=== PATIENT | male | born 1950 | race Caucasian/White ===

== ENCOUNTER 2022-07-30 10:45 | Outpatient (CLI) | payer MEDICARE, MEDICAID | END 2022-07-30 10:46 | disposition home or self-care (01) | LOC: CSHCP 10:45 | PROVIDERS: ATTEND Internal Medicine Critical Care Medicine | DX: J45.51 Severe persistent asthma with (acute) exacerbation (principal) | CPT/HCPCS: 94060; 94726; 94729; 94760 ==

== ENCOUNTER 2024-08-25 19:58 | Emergency (ER) | payer MEDICARE ==
[~2024-08-25 19:58] MED LIST: Iopamidol 300 61% 100 ML VIAL FS ONE
[2024-08-25 20:43] LABS: #Basophils 0.06 10x3/uL (0.0-0.2); #Monocytes 2.18 10x3/uL (0.0-1.1); #Neutrophils 16.59 10x3/uL (1.5-8.4); %Basophils 0.3 % (0.0-2.0); %Eosinophils 2.3 % (0.0-6.0); %Lymphocytes 9.5 % (18.0-47.0); %Monocytes 10.1 % (0.0-10.0); %Neutrophils 77.2 % (40.0-75.0); Hematocrit 41.8 % (38.8-50.0); Hemoglobin 14.1 g/dL (13.5-17.5); Mean Corpuscular HGB CONC 33.7 g/dL (32.0-36.0); Mean Corpuscular Hemoglobin 29.3 pg (27.0-33.0); Mean Corpuscular Volume 86.9 fL (81.2-95.1); Mean Platelet Volume 9.1 fL (7.4-10.4); Platelet Count 295 10x3/uL (150-450); Red Blood Cell (RBC) Count 4.81 10x6/uL (4.32-5.72); White Blood Cell (WBC) Count 21.5 10x3/uL (3.5-10.5)
[2024-08-25] MEDS ORDERED: Ondansetron PF 4 MG/2 ML Vial ONE (20:48)
[2024-08-25] MEDS ORDERED: methylPREDNISolone Sod Succ/PF 125 MG/2 ML VIAL ONE (20:48)
[2024-08-25] MEDS ORDERED: Ipratropium/Albuterol 3 ML NEB ONE (20:54)
[2024-08-25 21:02] LABS: ALT (SGPT) 13 U/L (8-55); AST (SGOT) 16 U/L (5-34); Albumin 3.5 g/dL (3.4-4.8); Alkaline Phosphatase 82 U/L (40-110); Anion Gap 14 mmol/L (10-20); BUN (Urea Nitrogen) 27 mg/dL (8.4-25.7); Bilirubin, Total 0.7 mg/dL (0.2-1.2); Calc. Creatinine Clearance 0 mL/min (70-130); Calcium 9.5 mg/dL (7.8-10.44); Carbon Dioxide 26 mmol/L (23-31); Chloride 99 mmol/L (98-107); Estimated GFR 48; Globulin 3.4 g/dL (2.4-3.5); Glucose 206 mg/dL (83-110); Lipase 47 U/L (8-78); Magnesium 1.7 mg/dL (1.6-2.6); Potassium 4.7 mmol/L (3.5-5.1); Protein, Total 6.9 g/dL (5.8-8.1); Sodium 134 mmol/L (136-145)
[2024-08-25 21:08] LABS: Troponin I Less than 0.010 ng/mL (< 0.028)
[2024-08-25 21:28] LABS: Actual Bicarbonate (HCO3v) 26.1 mEq/L (22-28); Analyzer IN Cardio CS ER; Calcium, Ionized (venous) 1.17 mmol/L (1.16-1.32); Chloride (VBG) 97 mmol/L (98-106); Critical Notified By: CP.PH; Hematocrit-VBG 44 % (42.0-52.0); Hemoglobin (Hb) 15.1 g/dL (12.6-17.4); Potassium (VBG) 4.98 mmol/L (3.70-5.30); Puncture Site Other Site; RapidComm Collect By LAB.YY; Sodium 135 mmol/L (133-146); pH (venous) 7.399 (7.32-7.43)
[2024-08-25 22:58] LABS: Bilirubin Neg (Negative); Blood, Urine 25 (Negative); Clarity Cloudy (Clear); Glucose, Urine (Dipstick) Normal (Negative); Ketone, Urine Negative (Negative); Leukocyte 500 (Negative); Nitrite Positive (Negative); Protein, Urine (Dipstick) 100 mg/dl (Neg-Trace); Urobilinogen Normal mg/dL (Less than 2)
[2024-08-25 23:06] LABS: Bacteria/HPF 4+ HPF (None Seen); CAUTI Indications for Culture Fever or rigors; RBC/HPF 0-3 HPF (0-3); WBC/HPF Greater than 50 HPF (0-3)
[2024-08-25 23:07] LABS: Urine Culture Reflex Yes Yes
[2024-08-25] MEDS ORDERED: cefTRIAXone (ROCEPHIN) 1 GM VIAL ONE (23:48)
== END 2024-08-26 00:35 | disposition home or self-care (01) ==
LOC: CSHERS 19:58
DX: N39.0 Urinary tract infection, site not specified (principal); E11.9 Type 2 diabetes mellitus without complications; I10 Essential (primary) hypertension
CPT/HCPCS: 71260; 74177; 80053; 81001; 82805; 83605; 83690; 83735; 83880; 84484; 85025; 87077; 87086; 93005; 94640; 94760; J0696; J2405; J2919; 36415; 87186; 96361; 96365; 96375; J7620; Q9967

== ENCOUNTER 2024-12-07 10:07 | Outpatient (CLI) | payer OTHER, MEDICAID | END 2024-12-07 10:08 | disposition home or self-care (01) | LOC: CSHULT 10:07 | PROVIDERS: ATTEND Psychiatry & Neurology Psychiatry | DX: R11.2 Nausea with vomiting, unspecified (principal); K74.60 Unspecified cirrhosis of liver; D12.6 Benign neoplasm of colon, unspecified; B18.2 Chronic viral hepatitis C | CPT/HCPCS: 76705 ==

== ENCOUNTER 2025-10-13 17:40 | Inpatient (IN) | payer OTHER ==
[2025-10-13 18:15] LABS: #Basophils 0.04 10x3/uL (0.0-0.2); #Eosinophils 0.06 10x3/uL (0.0-0.5); #Monocytes 2.50 10x3/uL (0.0-1.1); #Neutrophils 13.38 10x3/uL (1.5-8.4); %Basophils 0.2 % (0.0-2.0); %Eosinophils 0.3 % (0.0-6.0); %Lymphocytes 17.0 % (18.0-47.0); %Monocytes 12.9 % (0.0-10.0); %Neutrophils 69.2 % (40.0-75.0); Hematocrit 40.3 % (38.8-50.0); Hemoglobin 14.2 g/dL (13.5-17.5); Mean Corpuscular Hemoglobin 30.3 pg (27.0-33.0); Mean Corpuscular Volume 85.9 fL (81.2-95.1); Platelet Count 225 10x3/uL (150-450); Red Blood Cell (RBC) Count 4.69 10x6/uL (4.32-5.72); White Blood Cell (WBC) Count 19.33 10x3/uL (3.5-10.5)
[2025-10-13 18:29] LABS: ALT (SGPT) 38 U/L (Less than 45); AST (SGOT) 100 U/L (11-34); Albumin 3.8 g/dL (3.1-4.5); Alkaline Phosphatase 71 U/L (40-110); Anion Gap 18 mmol/L (10-20); BUN (Urea Nitrogen) 57 mg/dL (8.4-25.7); Bilirubin, Total 1.2 mg/dL (0.3-1.2); Calc. Creatinine Clearance 0 mL/min (70-130); Calcium 8.9 mg/dL (7.8-10.44); Carbon Dioxide 21 mmol/L (23-31); Chloride 98 mmol/L (98-107); Globulin 3.2 g/dL (2.4-3.5); Glucose 238 mg/dL (83-110); Lipase 14 U/L (8-78); Potassium 4.4 mmol/L (3.5-5.1); Sodium 133 mmol/L (136-145)
[2025-10-13 18:50] LABS: Troponin I 0.027 ng/mL (< 0.028)
[2025-10-13 20:21] LABS: Glucose, Urine (Dipstick) >=1000 mg/dL (Negative); Leukocyte Negative (Negative); Protein, Urine (Dipstick) 100 mg/dl (Neg-Trace); Specific Gravity, Urine 1.025 (1.005-1.030)
[2025-10-13 20:28] LABS: CAUTI Indications for Culture Pelvic or flank pain; WBC/HPF 0-3 HPF (0-3)
[2025-10-13 20:29] LABS: Bacteria/HPF 2+ HPF (None Seen); Mucous/LPF 2+ LPF (<2+)
[2025-10-13 20:30] LABS: Urine Culture Reflex No No
[2025-10-13] MEDS ORDERED: cefTRIAXone (ROCEPHIN) 2 GM VIAL ONE (20:57)
[2025-10-13] MEDS ORDERED: Bisacodyl 10 MG SUPP PR PRN (22:53)
[2025-10-13] MEDS ORDERED: Ondansetron PF 4 MG/2 ML Vial IVP PRN (22:53)
[2025-10-13] MEDS ORDERED: Senokot S 8.6-50 MG TAB PO PRN (22:53)
[2025-10-13] MEDS ORDERED: Glucagon 1 MG/ML KIT IM PRN (22:59)
[2025-10-13] MEDS ORDERED: Dextrose 50% Abboject 50 ML SYRINGE SLOW IVP PRN (22:59)
[2025-10-13 23:32] VITALS: BMI 28.5
[2025-10-13] MEDS: Acetaminophen 325 MG TAB PO PRN (23:51)
[2025-10-14] MEDS: Ventolin HFA Inhaler 60 PUFF INHALER INH PRN (00:40)
[2025-10-14] MEDS: Gabapentin 300 MG CAP PO SCH ×2 (00:47→09:01)
[2025-10-14 03:42] LABS: #Basophils 0.03 10x3/uL (0.0-0.2); #Eosinophils 0.31 10x3/uL (0.0-0.5); #Monocytes 1.83 10x3/uL (0.0-1.1); #Neutrophils 10.27 10x3/uL (1.5-8.4); %Basophils 0.2 % (0.0-2.0); %Eosinophils 2.0 % (0.0-6.0); %Lymphocytes 18.5 % (18.0-47.0); %Monocytes 11.9 % (0.0-10.0); %Neutrophils 67.1 % (40.0-75.0); Hematocrit 38.2 % (38.8-50.0); Hemoglobin 13.3 g/dL (13.5-17.5); Mean Corpuscular Hemoglobin 30.2 pg (27.0-33.0); Mean Corpuscular Volume 86.8 fL (81.2-95.1); Platelet Count 185 10x3/uL (150-450); Red Blood Cell (RBC) Count 4.40 10x6/uL (4.32-5.72); White Blood Cell (WBC) Count 15.33 10x3/uL (3.5-10.5)
[2025-10-14 04:00] LABS: ALT (SGPT) 38 U/L (Less than 45); AST (SGOT) 109 U/L (11-34); Albumin 3.2 g/dL (3.1-4.5); Alkaline Phosphatase 61 U/L (40-110); Anion Gap 14 mmol/L (10-20); BUN (Urea Nitrogen) 46 mg/dL (8.4-25.7); Bilirubin, Total 0.7 mg/dL (0.3-1.2); Calc. Creatinine Clearance 57 mL/min (70-130); Calcium 8.3 mg/dL (7.8-10.44); Carbon Dioxide 21 mmol/L (23-31); Chloride 104 mmol/L (98-107); Globulin 2.9 g/dL (2.4-3.5); Glucose 225 mg/dL (83-110); Potassium 4.0 mmol/L (3.5-5.1); Sodium 135 mmol/L (136-145)
[2025-10-14] MEDS: Mometasone 100 MCG/Formoterol 5 MCG 60 PUFF AEROSOL INH SCH (07:24)
[2025-10-14] MEDS ORDERED: Gabapentin 300 MG CAP PO SCH (09:00)
[2025-10-14] MEDS: CO Q-10 CAPSULE 50 MG PO SCH (09:02)
[2025-10-14] MEDS: Aspirin 81 mg Enteric Coated Tablet PO SCH (09:02)
[2025-10-14] MEDS: Cholecalciferol 1,000 UNITS (25 MCG) TAB PO SCH (09:04)
[2025-10-14] MEDS: Heparin 5,000 UNITS/ML VIAL SC SCH (09:07)
[2025-10-14] MEDS: Senokot S 8.6-50 MG TAB PO SCH (09:07)
[2025-10-14] MEDS: predniSONE 10 MG TAB PO SCH (19:22)
[2025-10-14] MEDS: Pantoprazole 40 MG DR.TAB PO SCH (20:23)
[2025-10-14] MEDS: Finasteride 5 MG TAB PO SCH (20:23)
[2025-10-14] MEDS: Lantus 1000 UNITS/10 ML VIAL SC SCH (20:24)
[2025-10-15 03:48] LABS: #Basophils Less than 0.03 10x3/uL (0.0-0.2); #Eosinophils 0.22 10x3/uL (0.0-0.5); #Monocytes 0.90 10x3/uL (0.0-1.1); #Neutrophils 7.07 10x3/uL (1.5-8.4); %Basophils 0.2 % (0.0-2.0); %Eosinophils 2.3 % (0.0-6.0); %Lymphocytes 15.1 % (18.0-47.0); %Monocytes 9.3 % (0.0-10.0); %Neutrophils 72.7 % (40.0-75.0); Hematocrit 37.9 % (38.8-50.0); Hemoglobin 13.2 g/dL (13.5-17.5); Mean Corpuscular Hemoglobin 30.6 pg (27.0-33.0); Mean Corpuscular Volume 87.7 fL (81.2-95.1); Platelet Count 179 10x3/uL (150-450); Red Blood Cell (RBC) Count 4.32 10x6/uL (4.32-5.72); White Blood Cell (WBC) Count 9.72 10x3/uL (3.5-10.5)
[2025-10-15 04:03] LABS: ALT (SGPT) 34 U/L (Less than 45); AST (SGOT) 56 U/L (11-34); Albumin 2.8 g/dL (3.1-4.5); Alkaline Phosphatase 57 U/L (40-110); Anion Gap 12 mmol/L (10-20); BUN (Urea Nitrogen) 28 mg/dL (8.4-25.7); Bilirubin, Total 0.3 mg/dL (0.3-1.2); Calc. Creatinine Clearance 81 mL/min (70-130); Calcium 8.2 mg/dL (7.8-10.44); Carbon Dioxide 22 mmol/L (23-31); Chloride 108 mmol/L (98-107); Globulin 2.9 g/dL (2.4-3.5); Glucose 197 mg/dL (83-110); Potassium 4.7 mmol/L (3.5-5.1); Sodium 137 mmol/L (136-145)
[2025-10-15] MEDS: predniSONE 10 MG TAB PO SCH (09:02)
[2025-10-15] MEDS: VANCOMYCIN 2 GRAM/400 ML BAG 2 GM in Premix 1 BAG IVPB SCH (14:54)
[2025-10-15] MEDS: Vancomycin HCl 750 MG in Sodium Chloride 0.9% 250 ML 250 ML IVPB SCH (21:00)
[2025-10-16 04:34] LABS: #Basophils 0.05 10x3/uL (0.0-0.2); #Eosinophils 0.23 10x3/uL (0.0-0.5); #Monocytes 0.98 10x3/uL (0.0-1.1); #Neutrophils 5.78 10x3/uL (1.5-8.4); %Basophils 0.5 % (0.0-2.0); %Eosinophils 2.1 % (0.0-6.0); %Lymphocytes 34.0 % (18.0-47.0); %Monocytes 9.1 % (0.0-10.0); %Neutrophils 53.9 % (40.0-75.0); Hematocrit 42.5 % (38.8-50.0); Hemoglobin 14.6 g/dL (13.5-17.5); Mean Corpuscular Hemoglobin 30.4 pg (27.0-33.0); Mean Corpuscular Volume 88.5 fL (81.2-95.1); Platelet Count 212 10x3/uL (150-450); Red Blood Cell (RBC) Count 4.80 10x6/uL (4.32-5.72); White Blood Cell (WBC) Count 10.73 10x3/uL (3.5-10.5)
[2025-10-16 05:03] LABS: Vancomycin, Random 16.3 ug/mL (See Comment)
[2025-10-16 05:30] LABS: ALT (SGPT) 34 U/L (Less than 45); AST (SGOT) 38 U/L (11-34); Albumin 3.2 g/dL (3.1-4.5); Alkaline Phosphatase 65 U/L (40-110); Anion Gap 12 mmol/L (10-20); BUN (Urea Nitrogen) 18 mg/dL (8.4-25.7); Bilirubin, Total 0.3 mg/dL (0.3-1.2); Calc. Creatinine Clearance 84 mL/min (70-130); Calcium 8.8 mg/dL (7.8-10.44); Carbon Dioxide 27 mmol/L (23-31); Chloride 104 mmol/L (98-107); Globulin 3.6 g/dL (2.4-3.5); Glucose 125 mg/dL (83-110); Potassium 4.1 mmol/L (3.5-5.1); Sodium 139 mmol/L (136-145)
[2025-10-16] MEDS: VANCOMYCIN 1.25 GM/250 ML BAG 1.25 GM in Premix 1 BAG IVPB SCH (09:04)
[2025-10-16 10:41] VITALS: BMI 28.5
[2025-10-16] MEDS: Melatonin 3 MG TAB PO PRN (20:27)
[2025-10-17 04:38] LABS: #Basophils 0.05 10x3/uL (0.0-0.2); #Eosinophils 0.22 10x3/uL (0.0-0.5); #Monocytes 1.01 10x3/uL (0.0-1.1); #Neutrophils 5.43 10x3/uL (1.5-8.4); %Basophils 0.4 % (0.0-2.0); %Eosinophils 1.9 % (0.0-6.0); %Lymphocytes 40.8 % (18.0-47.0); %Monocytes 8.8 % (0.0-10.0); %Neutrophils 47.4 % (40.0-75.0); Hematocrit 42.8 % (38.8-50.0); Hemoglobin 14.5 g/dL (13.5-17.5); Mean Corpuscular Hemoglobin 30.1 pg (27.0-33.0); Mean Corpuscular Volume 89.0 fL (81.2-95.1); Platelet Count 214 10x3/uL (150-450); Red Blood Cell (RBC) Count 4.81 10x6/uL (4.32-5.72); White Blood Cell (WBC) Count 11.47 10x3/uL (3.5-10.5)
[2025-10-17 04:51] LABS: Vancomycin, Random 20.7 ug/mL (See Comment)
[2025-10-17 04:52] LABS: ALT (SGPT) 40 U/L (Less than 45); AST (SGOT) 37 U/L (11-34); Albumin 3.1 g/dL (3.1-4.5); Alkaline Phosphatase 74 U/L (40-110); Anion Gap 11 mmol/L (10-20); BUN (Urea Nitrogen) 25 mg/dL (8.4-25.7); Bilirubin, Total 0.2 mg/dL (0.3-1.2); Calc. Creatinine Clearance 76 mL/min (70-130); Calcium 9.1 mg/dL (7.8-10.44); Carbon Dioxide 27 mmol/L (23-31); Chloride 101 mmol/L (98-107); Globulin 3.4 g/dL (2.4-3.5); Glucose 152 mg/dL (83-110); Potassium 4.4 mmol/L (3.5-5.1); Sodium 135 mmol/L (136-145)
[2025-10-17] MEDS ORDERED: PROPOFOL 20 ML ONE (12:34)
[2025-10-17] MEDS: Vancomycin 1 GM in Sodium Chloride 0.9% 250 ML 250 ML IVPB SCH (21:45)
[2025-10-18 03:53] LABS: #Basophils 0.04 10x3/uL (0.0-0.2); #Eosinophils 0.15 10x3/uL (0.0-0.5); #Monocytes 0.93 10x3/uL (0.0-1.1); #Neutrophils 4.73 10x3/uL (1.5-8.4); %Basophils 0.4 % (0.0-2.0); %Eosinophils 1.4 % (0.0-6.0); %Lymphocytes 44.5 % (18.0-47.0); %Monocytes 8.7 % (0.0-10.0); %Neutrophils 44.4 % (40.0-75.0); Hematocrit 42.1 % (38.8-50.0); Hemoglobin 14.3 g/dL (13.5-17.5); Mean Corpuscular Hemoglobin 30.2 pg (27.0-33.0); Mean Corpuscular Volume 88.8 fL (81.2-95.1); Platelet Count 204 10x3/uL (150-450); Red Blood Cell (RBC) Count 4.74 10x6/uL (4.32-5.72); White Blood Cell (WBC) Count 10.65 10x3/uL (3.5-10.5)
[2025-10-18 04:08] LABS: ALT (SGPT) 54 U/L (Less than 45); AST (SGOT) 52 U/L (11-34); Albumin 3.0 g/dL (3.1-4.5); Alkaline Phosphatase 68 U/L (40-110); Anion Gap 12 mmol/L (10-20); BUN (Urea Nitrogen) 26 mg/dL (8.4-25.7); Bilirubin, Total 0.2 mg/dL (0.3-1.2); Calc. Creatinine Clearance 78 mL/min (70-130); Calcium 9.2 mg/dL (7.8-10.44); Carbon Dioxide 26 mmol/L (23-31); Chloride 101 mmol/L (98-107); Globulin 3.2 g/dL (2.4-3.5); Glucose 132 mg/dL (83-110); Potassium 4.3 mmol/L (3.5-5.1); Sodium 135 mmol/L (136-145)
[2025-10-18 11:39] VITALS: TEMP 98.4
[2025-10-18 13:01] VITALS: BP 131/69
== END 2025-10-18 13:46 | disposition home health service (06) | DRG 504 ==
LOC: CSHERS 17:40 → CSHTELE 22:18
PROVIDERS: ADMIT Internal Medicine; ATTEND Hospitalist
PROC: 0Y6U0Z1 Detachment at Left 3rd Toe, High, Open Approach (ICD-10-PCS; principal; 2025-10-17)
PROC: 3E03329 Introduction of Other Anti-infective into Peripheral Vein, Percutaneous Approach (ICD-10-PCS; 2025-10-17)
DX: M86.8X7 Other osteomyelitis, ankle and foot (principal); E87.1 Hypo-osmolality and hyponatremia; N17.9 Acute kidney failure, unspecified; E11.40 Type 2 diabetes mellitus with diabetic neuropathy, unspecified; E11.43 Type 2 diabetes mellitus with diabetic autonomic (poly)neuropathy; S91.209A Unspecified open wound of unspecified toe(s) with damage to nail, initial encounter; L03.032 Cellulitis of left toe; G24.9 Dystonia, unspecified; I95.1 Orthostatic hypotension; K31.84 Gastroparesis; I25.10 Atherosclerotic heart disease of native coronary artery without angina pectoris; Z95.1 Presence of aortocoronary bypass graft; J44.9 Chronic obstructive pulmonary disease, unspecified; J45.909 Unspecified asthma, uncomplicated; F32.A Depression, unspecified; I10 Essential (primary) hypertension; T79.6XXA Traumatic ischemia of muscle, initial encounter; D72.829 Elevated white blood cell count, unspecified; I25.2 Old myocardial infarction; N40.0 Benign prostatic hyperplasia without lower urinary tract symptoms; Z98.890 Other specified postprocedural states
CPT/HCPCS: 36415; 36416; 70450; 71045; 71250; 72125; 74176; 76770; 80053; 80202; 81001; 82550; 83605; 83690; 83880; 84145; 84484; 85025; 86140; 87040; 88305; 93005; 94664; 94760; 96374; 96375; 97139; J0692; J0696; J1100; J1644; J1815; J2272; J2704; J3373; J3375; J7030; J7050; J7512